=== PATIENT | female | born 1990 | race African-American/Black ===

== ENCOUNTER 2017-08-09 16:12 | Emergency (ER) | payer MEDICAID ==
[~2017-08-09] VITALS: Ht 165.1 cm; Wt 64.0 kg
[2017-08-09 16:37] VITALS: BP 117/56
== END 2017-08-09 20:30 | disposition left against medical advice (07) ==
LOC: ER 18:54
DX: Z53.21 Procedure and treatment not carried out due to patient leaving prior to being seen by health care provider (principal); F17.210 Nicotine dependence, cigarettes, uncomplicated; F12.10 Cannabis abuse, uncomplicated

== ENCOUNTER 2017-09-03 20:48 | Emergency (ER) | payer MEDICAID ==
[~2017-09-03] VITALS: Ht 167.6 cm; Wt 64.0 kg
[2017-09-03 22:08] VITALS: BP 116/64
== END 2017-09-03 22:12 | disposition home or self-care (01) ==
LOC: ER 20:55
DX: B07.9 Viral wart, unspecified (principal); F17.200 Nicotine dependence, unspecified, uncomplicated; F12.10 Cannabis abuse, uncomplicated
CPT/HCPCS: 99282

== ENCOUNTER 2018-05-24 17:43 | Emergency (ER) | payer MEDICAID ==
[~2018-05-24] VITALS: Ht 162.6 cm; Wt 73.0 kg
[2018-05-24] MEDS ORDERED: LIDOCAINE HCL 1% 20ML VIAL (Pyxis) INJ MC ONE (19:15)
[2018-05-24] MEDS ORDERED: TETANUS, DIPHTHERIA, PERTUSSIS VAC/PF 0.5ML (>7YR OLD) IM ONE (19:15)
[2018-05-24] MEDS ORDERED: BACITRACIN ZINC OINT UDPKT TOP ONE (19:15)
[2018-05-24] MEDS ORDERED: IBUPROFEN 800MG TABLET PO ONE (21:15)
[2018-05-24 21:22] VITALS: BP 118/72
== END 2018-05-24 21:27 | disposition home or self-care (01) ==
LOC: ER 17:43
DX: S61.213A Laceration without foreign body of left middle finger without damage to nail, initial encounter (principal); W26.8XXA Contact with other sharp object(s), not elsewhere classified, initial encounter; Y93.89 Activity, other specified; Y92.096 Garden or yard of other non-institutional residence as the place of occurrence of the external cause; Z23 Encounter for immunization
CPT/HCPCS: 12001; 90471; 90715; 99283; A4217; J3490; Z7610

== ENCOUNTER 2018-05-28 18:37 | Emergency (ER) | payer MEDICAID ==
[~2018-05-28] VITALS: Ht 162.6 cm; Wt 73.0 kg
[2018-05-28 21:41] VITALS: BP 119/54
== END 2018-05-28 21:41 | disposition home or self-care (01) ==
LOC: ER 18:37
DX: S61.213D Laceration without foreign body of left middle finger without damage to nail, subsequent encounter (principal); X58.XXXD Exposure to other specified factors, subsequent encounter
CPT/HCPCS: 73130; 81025; 99284

== ENCOUNTER 2018-05-31 11:13 | Emergency (ER) | payer MEDICAID ==
[~2018-05-31] VITALS: Ht 165.1 cm; Wt 70.0 kg
[2018-05-31 11:16] VITALS: BP 113/44
== END 2018-05-31 12:24 | disposition home or self-care (01) ==
LOC: ER 11:46
DX: Z48.00 Encounter for change or removal of nonsurgical wound dressing (principal); F12.90 Cannabis use, unspecified, uncomplicated; F17.210 Nicotine dependence, cigarettes, uncomplicated
CPT/HCPCS: 99281

== ENCOUNTER 2018-06-10 09:41 | Emergency (ER) | payer MEDICAID ==
[~2018-06-10] VITALS: Ht 165.1 cm; Wt 73.0 kg
[2018-06-10 09:45] VITALS: BP 144/85
== END 2018-06-10 12:15 | disposition home or self-care (01) ==
LOC: ER 11:47
DX: Z48.02 Encounter for removal of sutures (principal)
CPT/HCPCS: 99281; Z7610

== ENCOUNTER 2019-05-04 03:51 | Emergency (ER) | payer MEDICAID ==
[~2019-05-04] VITALS: Ht 167.6 cm; Wt 78.3 kg
[2019-05-04 06:42] VITALS: BP 131/77
[2019-05-04] MEDS ORDERED: IBUPROFEN 600MG TABLET PO ONE (06:45)
[2019-05-04] MEDS ORDERED: DIPHENHYDRAMINE 50MG CAPSULE PO ONE (06:45)
== END 2019-05-04 07:51 | disposition left against medical advice (07) ==
LOC: ER 03:51
DX: M79.605 Pain in left leg (principal); M79.89 Other specified soft tissue disorders; F12.10 Cannabis abuse, uncomplicated; L29.8 Other pruritus; F17.200 Nicotine dependence, unspecified, uncomplicated
CPT/HCPCS: 99283; Q0163